=== PATIENT | male | born 1950 | race African-American/Black ===

== ENCOUNTER 2017-12-28 08:11 | Emergency (ER) | payer OTHER ==
[~2017-12-28] VITALS: Ht 167.6 cm; Wt 63.5 kg
--- NOTE | ~2017-12-28 | HC ---
[facility] [place] [address] CONSULTATION Name: SHREYA BLAKELY JR [id number] Admission: 12/28/17 Attend Phys: Discharge: 12/28/17 Date of : 46 Report #: [id number] THIS REPORT FOR: //name// CC: Jose Vasquez DATE OF SERVICE: 12/28/2017 PALLIATIVE CARE CONSULTATION REQUESTING PHYSICIAN: Patito Andre. CHIEF COMPLAINT: Cirrhosis. HISTORY OF PRESENT ILLNESS: The patient is a 67-year-old male who presented initially for hematemesis from [facility]. The patient had had anemia per spouse at the [facility] center, but this morning had had coffee-ground emesis per report. He had had a recent prolonged hospitalization at ____ [facility] for cirrhosis. Approximately 3-1/2 weeks ago, had an EGD, which he reports did not show ____ dilation, but unknown result. In admit H and P, there were esophageal varices and I have asked an access to these records. The patient had had multiple paracentesis at the time of admission. He was discharged to the [facility] with hospice and patient's spouse reports that he had been amenable to this originally, but then had ____ on hospice care. However, she is concerned about his ability to understand what his medical plan is. At this point in time, the patient denies that he is in any pain. He does report occasional cough with phlegm production. He states that he is not able to answer significant other questions. Denies shortness of breath. Denies abdominal pain. Denies any other complaints at this time who frequently has fallen asleep during my interview. PAST MEDICAL HISTORY: Significant for cirrhosis with anemia, history of pulmonary edema and history of tobacco abuse. SOCIAL HISTORY: He had daily alcohol use, 1 pint per day and history of heavy tobacco use, approximately 100-pack years. ALLERGIES: No known drug allergies. MEDICATIONS: Previously on MiraLax, Zofran, morphine, Roxanol, Lasix 20 mg daily and Tylenol. SURGICAL HISTORY: Unknown. FAMILY HISTORY: Noncontributory. [facility] [address] [place] [address] CONSULTATION Name: SHREYA BLAKELY [facility]: [facility]Les[facility] [id number] Admission: 12/28/17 Attend Phys: Discharge: 12/28/17 Date of : 46 Report #: [id number] REVIEW OF SYSTEMS: GENERAL: He denies any fevers at this point in time and does have alteration of his level of attention. CARDIOVASCULAR: Denies chest pain. LUNGS: Denies shortness of breath. He does report cough with phlegm production. ABDOMEN: Denies nausea currently. Denies constipation or diarrhea. PHYSICAL EXAMINATION: VITAL SIGNS: Temp 36.8, pulse 97, respirations 16, blood pressure 137/81 and 94% on room air. GENERAL: He will alert to touch stimuli; however, this is for a short period of time only. His attention level is extremely poor. He was able to recognize his and his grandchildren, although could not remember the name of one. He is not able to recognize the situation that brings him to the hospital or the location that he is at this current point in time. HEENT: Scleral icterus demonstrated bilaterally. CARDIOVASCULAR: Regular rate and rhythm without murmur. LUNGS: Clear to auscultation bilaterally. No wheezes, rales or rhonchi. ABDOMEN: He does have distention noted and appears to be consistent with ascites. NEUROLOGIC: Again his attention level is overall very poor. LABORATORIES: Include lactic acid 1.9. UA showed 2+ leuk, greater than 25 white blood cells. It is growing 1-9 bacteria. CBC with hemoglobin 9.6, white blood cells 18.3 and platelets ____. INR 1.5. Creatinine 1.1. Albumin 2.1. Lipase 45. Chest x-ray was performed in the Emergency Department, bibasilar density, possible atelectasis. ASSESSMENT AND PLAN: 1. Hematemesis. I agree with GI consultation. I have discussed extensively today and spent approximately 25 minutes in advance care planning. However, I will follow up as patient's spouse feels that we need more information prior to making decision at this time. She is reticent to have him undergo EGD again and is amenable to serial blood count follow up prior to making decision with regards to this. She understands his overall poor prognosis, although MELD score for patient is 12. The patient's spouse is comfortable with making medical decisions and she is leaning towards hospice again at discharge, but she wanted to ensure stability prior to. She continues to report that he is going to maintain DNR status. The patient did not demonstrate capacity at this time for medical decisions. 2. Cirrhosis. Again MELD score as above and I agree GI consultation. The patient appears at this time to have overall poor prognosis. I will follow up in the morning. I have discussed with the patient's spouse to determine stability of his overall medical condition, may be able to discharge back to [facility] [address] [place] [address] CONSULTATION Name: SHREYA BLAKELY JR Room #: DEP [facility] Marquez#: [id number] Admission: 12/28/17 Attend Phys: Discharge: 12/28/17 Date of : 46 Report #: [id number] [place] with hospice care. 3. Leukocytosis. X-ray is possibly consistent with atelectasis, but also it is possible patient has had some aspiration episode. Given his hematemesis, I am concerned that this is a possibility. May need further workup with regards to that or at very least monitoring. 4. Protein-calorie malnutrition. Again coupled with the patient's liver disease, patient to have an overall poor prognosis. However, we will await GI's further consultation. We will continue to follow up with patient. Please contact me for any questions regarding this patient and palliative care. Thank you very much for the consultation. <ELECTRONICALLY SIGNED> By: Fred Mota DO 01/29/18 [id number] Fred Mota DO /nt
[2017-12-28 08:12] VITALS: BP 137/81
[2017-12-28 08:31] LABS: HEMATOCRIT 28.7 % (42.0-52.0); HEMOGLOBIN 9.6 gm/dL (14.0-18.0); MCH 30.7 pg (26.0-34.0); MCHC 33.3 g/dL (28.0-37.0); MCV 92.1 fL (80.0-100.0); PLATELET COUNT 427 thou/uL (150-400); RBC 3.12 mil/uL (4.50-6.00); RDW 16.2 % (10.5-14.5); WBC 18.3 thou/uL (4.0-11.0)
[2017-12-28 08:40] LABS: CALCIUM 8.7 mg/dL (8.5-10.1); CREATININE 1.1 mg/dL (0.7-1.3); POTASSIUM 4.5 mmol/L (3.5-5.1)
[2017-12-28 08:45] LABS: ALBUMIN 2.1 g/dL (3.4-5.0); DIRECT BILIRUBIN 0.1 mg/dL (<0.1-0.3); TOTAL BILIRUBIN 0.9 mg/dL (<0.1-1.0); TOTAL PROTEIN 8.1 g/dL (6.4-8.2)
[2017-12-28 08:50] LABS: APTT 31.3 Seconds (24.5-32.8); INR 1.5; PROTIME 15.1 Seconds (9.3-11.4)
[2017-12-28 08:56] LABS: URINE BILIRUBIN NEGATIVE (Negative); URINE BLOOD TRACE (Negative); URINE CLARITY CLEAR; URINE COLOR YELLOW; URINE GLUCOSE-RANDOM* NEGATIVE (Negative); URINE KETONES NEGATIVE (Negative); URINE LEUKOCYTES 2+ (Negative); URINE NITRITE NEGATIVE (Negative); URINE PROTEIN (DIPSTICK) NEGATIVE (Negative); URINE SPECIFIC GRAVITY 1.025 (1.005-1.035); URINE UROBILINOGEN 0.2 E.U./dl (0.2-1.0)
[2017-12-28 09:01] LABS: ABSOLUTE NEUTROPHILS 15.7 thou/uL (1.4-8.2); PLATELET ESTIMATE INCREASED
[2017-12-28] MEDS ORDERED: POLYETHYLENE G255 G1 PO (09:06)
[2017-12-28 09:09] LABS: BACTERIA 1-9 Few /HPF (None Seen); CASTS None Seen /LPF (None Seen); CRYSTALS None Seen /LPF (None Seen); MUCUS 4-6 Moderate strn/LPF (None Seen); SQUAMOUS 0-3 Few /LPF (0-3); URINE RBC 0-2 Rare /HPF (0-2); URINE WBC >25 Many /HPF (0-5); WBC CLUMPS Moderate (None Seen)
[2017-12-28] MEDS ORDERED: ONDANSETRON HCL4 M2 PO (09:36)
[2017-12-28] MEDS ORDERED: MSL20MG/ML PO (09:37)
[2017-12-28] MEDS ORDERED: LASIX 20 MG TAB20 MG PO (09:37)
[2017-12-28] MEDS ORDERED: TYLENOL325 MG PO (09:37)
[2017-12-28] MEDS ORDERED: BISACODYL SUPP10 MG RECTAL (09:38)
[2017-12-28 10:13] VITALS: BP 154/70
[2017-12-28 13:05] VITALS: BP 140/82
[2017-12-28 13:11] VITALS: BP 123/78
[2017-12-28 14:24] VITALS: BP 135/81
== END 2017-12-28 14:24 | disposition home or self-care (01) ==
LOC: ER 08:11 → EROBS 09:05 → ER 14:24
PROVIDERS: Emergency Medicine
DX: N39.0 Urinary tract infection, site not specified (principal); K74.60 Unspecified cirrhosis of liver; D64.9 Anemia, unspecified; D72.829 Elevated white blood cell count, unspecified; K92.2 Gastrointestinal hemorrhage, unspecified; Z87.891 Personal history of nicotine dependence